=== PATIENT | male | born 1945 | race Caucasian/White ===

== ENCOUNTER 2017-04-06 20:57 | Emergency (ER) | payer MEDICARE, OTHER, SELFPAY ==
[~2017-04-06] VITALS: Ht 182.9 cm; Wt 100.0 kg
[2017-04-06] MEDS ORDERED: EPINEPHRINE SYRINGE 0.1 MG/ML, 10ML ONE (21:22)
[2017-04-06] MEDS ORDERED: CODE BLUE RESPONSE XX ONE (21:30)
== END 2017-04-06 22:44 | disposition home or self-care (01) ==
LOC: ED 21:40
DX: I46.9 Cardiac arrest, cause unspecified (principal); I10 Essential (primary) hypertension; E11.9 Type 2 diabetes mellitus without complications
CPT/HCPCS: 82962; 92950